=== PATIENT | male | born 1965 | race Caucasian/White ===

== ENCOUNTER → 2020-08-15 07:51 | Outpatient (BNVA) | payer OTHER, SELFPAY | PROVIDERS: Visit Provider Physical Therapy Assistant | DX: Z12.11 Encounter for screening for malignant neoplasm of colon (principal) ==

== ENCOUNTER 2020-08-29 08:53 | Day surgery (SDC) | payer OTHER, SELFPAY ==
[2020-08-29 09:21] VITALS: BP 122/84; PULSE 77; RESP 16; TEMP 36.4; O2SAT 100
[2020-08-29] MEDS: Lactated Ringers 1,000 ML 80 ML IV (09:37)
--- NOTE | 2020-08-29 10:08 | BOWEL_PTH ---
PATIENT: Luis Wagoner LOC: [facility] U#:[id number] AGE/SX: 54/M ROOM: RE08/29/[address]: Dulce Rousseau : 1965 BED: DIS: 08/29/2020 SPEC #: [id number] RECD: 08/29/20 12:34 STATUS: LISA REQ #: [id number] MARE: 08/29/20 10:[address]: Dulce Rousseau DEPT: Surgical Specimen RECD BY: Mimi Rascon ENTERED: 08/29/20 12:34 SP TYPE: Bowel OTHR DR: Dagoberto Sal Tissues: 1 - BIOPSY BOWEL Procedures: GROSS AND MICRO LEVEL 4 Comments: [id number]
--- NOTE | 2020-08-29 10:28 | W.COLOREPORT ---
Date of service: 08/29/20 Time of Service: 10:28 Colonoscopy Report Date of procedure: 08/29/20 Pre-op diagnosis general: screen Post-op diagnosis procedure note: other (polyp/divertic) Procedure: hot polpectomy forcept x1 & clip Surgeon: Dulce Rousseau Anesthesia proc note operative: GETA Estimated blood loss (mL): 1 Pathology: other Complications: None Disposition: same day Prep: Miralax/Dulcolax Retraction Time: 15 mins Procedure Description: After informed consent was obtained the patient was taken to the procedure room and placed in a left decubitous position. Monitors were applied and a time out was done. The patients name, date of , procedure, allergies to medications and metal in their body was reviewed. The patient was then sedated. Once sedated and comfortable a rectal exam was done. External exam was normal. Internal exam revealed a normal sphincter tone and no palpable masses. The scope was then introduced and retrofelexed. No internal hemorrhoids were identified. The scope was then advanced to the cecum w/out difficulty. The TI and appendiceal orifice were identified. The prep was good. The scope was then slowly retracted over 15 minutes back into the rectum. He has a 1 cm flat polyp in the cecum. This is removed in piecemeal with a hot biopsy forcep. All specimen was retrieved and no bleeding was noted. This does appear to be a serrated polyp. A clip was placed over the defect. Interestingly, he does have some diverticula in the cecum. He also has minor to moderate diverticular disease in the sigmoid colon. There is no signs of active bleeding or infection. The scope was removed and the patient was woken up and taken back to Same day surgery in stable condition. The patient tolerated the procedure well and there were no immediate complications. Follow up: The patient should follow up in 3-5 years (path pd) unless they develop changes in bowel habits or other new gastrointestinal complaints.
--- NOTE | 2020-08-29 10:31 | W.PM.DSUDISC ---
Discharge Plan Disposition Patient Disposition: HOME Condition: Good Discharge Details Reason For Visit: colon scope Attending Provider: Dulce Rousseau Primary Care Provider: Dagoberto Sal Discharge Instructions Additional Instructions: Findings:diverticula and cecal polyp -No ASA/NSAID's for 2wks. No lifting over 20 pounds or strenuous activity for 72 hours. Follow up: My office will send a letter in approximately 3 weeks after results of the findings on the polyp, and when to repeat the colonoscopy. Please call if you develop: fevers >101.5 Nausea or Vomiting Abdominal pain that is not transient DAY SURGERY UNIT POST COLONOSCOPY INSTRUCTIONS 1. Because there will be medication in your system for the next 24 hours, you may feel a little sleepy. Your coordination will be affected. Therefore: a. Do not drive or operate dangerous equipment for 24 hours. b. Do not drink alcohol beverages for 24 hours (not even beer). c. Plan to go home and rest for the day. 2. Generally there are no restrictions on your activity after a day or so has gone by, but you may feel a bit fatigued for a few days. 3 After you arrive home you may have a light meal and return to a normal diet as you can tolerate it without feeling sick to your stomach. 4. After surgery, you may feel pain or discomfort. This should be only transient, but if it persists please contact your doctor. 5. If there are any questions regarding the findings of your procedure, please feel free to contact your doctor. 6. If you are unable to contact your doctor with a problem, contact the hospital at [phone]. 7. Continue all your regular medications unless directed otherwise. I understand the above instructions and have no questions. Signature of Patient or Responsible Adult Escort Date/Time Name of Responsible Adult Escort Signature of Nurse Date/Time Activity:: [no lifting over 20 pounds or strenuous activity x72 ho Diet:: Small light meals x24 hours Discharge Orders Discharge Orders: Discharge Order (Routine); Ordered 08/28/20 Ordered By: Dulce Rousseau DS: Diagnosis Discharge Diagnosis (1) Diverticula of colon: Status: Acute (2) Adenomatous colon polyp: Status: Acute
[2020-08-29 10:50] VITALS: BP 134/89; PULSE 64; RESP 16; TEMP 35.9
== END 2020-08-29 11:10 | disposition home or self-care (01) ==
PROVIDERS: PCP Internal Medicine; Visit Provider Surgery
PROC: 0DJD8ZZ Inspection of Lower Intestinal Tract, Via Natural or Artificial Opening Endoscopic (ICD-10-PCS; CPT 45378; principal; 2020-08-29 09:45)
DX: Z12.11 Encounter for screening for malignant neoplasm of colon (principal); D12.0 Benign neoplasm of cecum; E78.5 Hyperlipidemia, unspecified; F17.210 Nicotine dependence, cigarettes, uncomplicated; K57.30 Diverticulosis of large intestine without perforation or abscess without bleeding
CPT/HCPCS: 45384; 88305

== ENCOUNTER 2022-12-20 12:55 | Outpatient (REF) | payer OTHER, SELFPAY ==
[2022-12-20 20:49] LABS: ALT 28 U/L (16-63); AST 19 U/L (15-37); Albumin 4.1 g/dL (3.4-5.0); Alkaline Phosphatase 69 U/L (46-116); Anion Gap 6.5 mmol/L (3-11); BUN 12 mg/dL (7-18); Bilirubin, Total 0.5 mg/dL (0.2-1.0); CO2 30.5 mmol/L (21.0-32.0); Calculated LDL 167 mg/dL (<100); Chloride 103 mmol/L (98-107); Cholesterol 242 mg/dL (<200); Estimated GFR 88.88 (mL/min/1.73m2); Glucose 97 mg/dL (74-106); HDL Cholesterol 45 mg/dL (40-60); Potassium 4.4 mmol/L (3.5-5.1); Sodium 140 mmol/L (136-145); Total Protein 7.9 g/dL (6.4-8.2); Triglyceride 153 mg/dL (<150)
== END 2022-12-20 12:56 | disposition home or self-care (01) ==
LOC: NCHCN 12:55
PROVIDERS: PCP Internal Medicine; Visit Provider Physician Assistant
DX: Z00.00 Encounter for general adult medical examination without abnormal findings (principal); E78.5 Hyperlipidemia, unspecified
CPT/HCPCS: 80053; 80061

== ENCOUNTER 2023-06-28 15:45 | Outpatient (REF) | payer OTHER, SELFPAY ==
[2023-06-28 20:06] LABS: ALT 52 U/L (16-63); AST 28 U/L (15-37); Albumin 4.2 g/dL (3.4-5.0); Alkaline Phosphatase 44 U/L (46-116); BUN 12 mg/dL (7-18); Bilirubin, Total 0.7 mg/dL (0.2-1.0); Calcium 8.9 mg/dL (8.5-10.1); Calculated LDL 80 mg/dL (<100); Chloride 103 mmol/L (98-107); Cholesterol 146 mg/dL (<200); Estimated GFR 88.88 (mL/min/1.73m2); Glucose 87 mg/dL (74-106); HDL Cholesterol 52 mg/dL (40-60); Potassium 3.9 mmol/L (3.5-5.1); Sodium 140 mmol/L (136-145); Total Protein 7.4 g/dL (6.4-8.2); Triglyceride 70 mg/dL (<150)
== END 2023-06-28 15:46 | disposition home or self-care (01) ==
LOC: NCHCN 15:45
PROVIDERS: PCP Internal Medicine; Visit Provider Physician Assistant
DX: E78.5 Hyperlipidemia, unspecified (principal)
CPT/HCPCS: 80053; 80061